=== PATIENT | female | born 1985 | race Caucasian/White ===

== ENCOUNTER 2017-04-26 19:30 | Emergency (ER) | payer OTHER ==
[~2017-04-26] VITALS: Ht 167.6 cm; Wt 106.6 kg
--- NOTE | 2017-04-26 20:25 | ED Integumentary General ---
General Chief Complaint: Trauma-Non Activation Stated Complaint: R HAND BURN FROM STEAM Nursing Triage Note: c/o burn to R 2nd and 3rd finger, patient reports was boiling water. Source: patient Exam Limitations: no limitations History of Present Illness Time seen by provider: 20:06 Initial Comments This 31-year-old young lady presents to the emergency room with connors on the right second and third fingers after contacting steam from a boiling pot while cooking. She has swelling and erythema to the dorsum of these fingers. She retains sensation, capillary refill, and movement of the fingers. She has applied antibiotic ointment but has not taken any medications. She did run them under cold water immediately. She is up-to-date on her tetanus immunization. Allergies and Home Medications Allergies Coded Allergies: No Known Drug Allergies (Unverified , 04/26/17) Home Medications No Active Prescriptions or Reported Meds Constitutional: no symptoms reported Musculoskeletal: no symptoms reported Skin: see HPI Psychiatric/Neurological: No Symptoms Reported Past Cxdftej-Stqmnm-Pvblyf Hx Patient Social History Alcohol Use: Denies Use Recreational Drug Use: No Recent Foreign Travel: No Contact w/Someone Who Travel: No Recent Infectious Disease Expo: No Physical Abuse: No Sexual Abuse: No Surgeries History of Surgeries: Yes Surgeries: Adenoidectomy, Tonsillectomy Respiratory History of Respiratory Disorde: No Cardiovascular History of Cardiac Disorders: No Neurological History of Neurological Disord: No Genitourinary History of Genitourinary Disor: No Gastrointestinal History of Gastrointestinal Di: No Musculoskeletal History of Musculoskeletal Dis: No Endocrine History of Endocrine Disorders: No HEENT History of HEENT Disorders: No Cancer History of Cancer: No Psychosocial History of Psychiatric Problem: No Suicide Risk Score: 0 Integumentary History of Skin or Integumenta: No Blood Transfusions History of Blood Disorders: No Physical Exam Vital Signs Vital Sign - Last 12Hours 04/26/17 19:37 Temp 98.5 Pulse 85 Resp 18 B/P (MAP) 146/98 Pulse Ox 98 Capillary Refill : Less Than 3 Seconds General Appearance: WD/WN, no apparent distress HEENT: PERRL/EOMI Neck: normal inspection Extremities: other (erythema and blistering of the dorsal aspect of the second and third finger on the right hand with generalized swelling of both fingers. Distal capillary refill and sensation intact in the fingertips. 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, no motor/sensory deficits, alert, normal mood/affect, oriented x 3, EOM palsy, depressed affect Skin: warm/dry, other (see above) Progress/Results/Core Measures Results/Orders Vital Signs/I&O Vital Sign - Last 12Hours 04/26/17 04/26/17 19:37 20:30 Temp 98.5 Pulse 85 89 Resp 18 18 B/P (MAP) 146/98 Pulse Ox 98 99 Blood Pressure Mean: 114 Departure Impression Impression: Primary Impression: Second degree burn of finger of right hand Qualified Codes: T23.221A - Burn of second degree of single right finger (nail ) except thumb, initial encounter Disposition: 01 HOME, SELF-CARE Condition: Stable Departure-Patient Inst. Decision time for Depature: 20:10 Referrals: NO,LOCAL PHYSICIAN (PCP/Family) Primary Care Physician Patient Instructions: Skin Connors (DC) Add. Discharge Instructions: You may take ibuprofen up to 800 mg every 8 hours as needed for pain. Add Tylenol (acetaminophen) up to 1000 mg every 6 hours as needed for additional pain relief. Elevation and icing in 20 minute intervals may be helpful in reducing pain and swelling. Antibiotic ointment is optional. Monitor the wound for signs of increasing swelling, increasing redness, fever, or puslike drainage as these may be signs of infection. Return to care if you notice these signs or symptoms. Exercise range of motion of the fingers to prevent stiffness or contractures of the skin. Follow-up with your primary care provider later this week for reexamination. All discharge instructions reviewed with patient and/or family. Voiced understanding. Scripts No Active Prescriptions or Reported Meds BRANDON HERNANDEZ MD Apr 26, 2017 20:25
[2017-04-26 20:30] VITALS: BP 134/95
== END 2017-04-26 20:31 | disposition home or self-care (01) ==
LOC: ER 19:33
DX: T23.231A Burn of second degree of multiple right fingers (nail), not including thumb, initial encounter (principal); T31.0 Burns involving less than 10% of body surface; Z90.89 Acquired absence of other organs; X13.1XXA Other contact with steam and other hot vapors, initial encounter; Y93.G3 Activity, cooking and baking
CPT/HCPCS: 99282

== ENCOUNTER 2019-10-15 15:36 | Emergency (ER) | payer BC, OTHER ==
[~2019-10-15] VITALS: Ht 168 cm; Wt 104.3 kg
[2019-10-15 15:57] VITALS: BP 136/89
--- NOTE | 2019-10-15 16:20 | ED Cough/URI ---
General Chief Complaint: Cough/Cold/Flu Symptoms Stated Complaint: FLU LIKE SYMPTOMS Nursing Triage Note: PT AMBULATE TO TRIAGE WITH C/O SORE THROAT, HEADACHE. PT DENIES FEVER. Sepsis Screen: No Definite Risk Source: patient History of Present Illness Date Seen by Provider: Oct 15, 2019 Time Seen by Provider: 16:18 Initial Comments 34-year-old female presents with cough, sore throat, headache, body aches. Sore throat started about a week ago with symptoms getting a little worse 2-3 days ago. Patient's child was diagnosed with influenza A. Patient's had sym ptoms similar started last night. She does not have any nausea vomiting diarrhea. She denies any chest pain shortness of breath Allergies and Home Medications Allergies Coded Allergies: No Known Drug Allergies (Unverified , 04/26/17) Home Medications No Active Prescriptions or Reported Meds Patient Home Medication List Home Medication List Reviewed: Yes Review of Systems Review of Systems Constitutional: chills EENTM: throat pain Respiratory: cough Cardiovascular: No chest pain Gastrointestinal: No nausea, No vomiting Musculoskeletal: see HPI Skin: no symptoms reported Psychiatric/Neurological: No Symptoms Reported Hematologic/Lymphatic: No Symptoms Reported Past Phucegm-Rqphch-Cpyvnk Hx Past Med/Social Hx: Reviewed Nursing Past Med/Soc Hx Patient Social History Alcohol Use: Denies Use Recreational Drug Use: No Smoking Status: Never a Smoker 2nd Hand Smoke Exposure: No Recent Foreign Travel: No Contact w/Someone Who Travel: No Recent Infectious Disease Expo: No Recent Hopitalizations: No Physical Abuse: No Sexual Abuse: No Mistreated: No Fear: No Seasonal Allergies Seasonal Allergies: No Past Medical History Surgeries: Yes Adenoidectomy, Tonsillectomy Respiratory: No Cardiac: No Neurological: No Genitourinary: No Gastrointestinal: No Musculoskeletal: Yes Fractures Endocrine: No HEENT: No Cancer: No Psychosocial: No Integumentary: No Blood Disorders: No Physical Exam Vital Signs - First Documented 10/15/19 15:57 Temp 36.8 Pulse 87 Resp 17 B/P (MAP) 136/89 (105) O2 Delivery Room Air Capillary Refill : Less Than 3 Seconds Height: 5'6.00" Weight: 235lbs. oz. 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, no motor/sensory deficits, normal mood/affect, oriented x 3 Skin: normal color, warm/dry Progress/Results/Core Measures Suspected Sepsis Recent Fever Within 48 Hours: No Infection Criteria Present: None New/Unexplained Altered Menta: No Sepsis Screen: No Definite Risk SIRS Temperature: Pulse: 87 Respiratory Rate: 17 Blood Pressure 136 /89 Mean: 105 Results/Orders Micro Results Microbiology 10/15/19 Influenza Types A,B Antigen (ROSALIO) - Final, Complete Vital Signs/I&O 10/15/19 10/15/19 15:57 16:01 Temp 36.8 Pulse 87 Resp 17 B/P (MAP) 136/89 (105) O2 Delivery Room Air Room Air Capillary Refill : Less Than 3 Seconds Blood Pressure Mean: 105 Departure Impression Primary Impression: Influenza A Disposition: 01 HOME, SELF-CARE Condition: Stable Departure-Patient Inst. Referrals: NO,LOCAL PHYSICIAN (PCP/Family) Primary Care Physician Patient Instructions: Flu, Adult (DC) Add. Discharge Instructions: Drink plenty of fluids Tylenol or ibuprofen as needed for pain and fever All discharge instructions reviewed with patient and/or family. Voiced understanding. Scripts No Active Prescriptions or Reported Meds Work/School Note: Family Work Note Patient Received Medical Care In the Emergency Department On: Oct 15, 2019 Patient Will Be Able to Return to Work/School On: Oct 18, 2019 DORY SPEARS DO Oct 15, 2019 16:20
[2019-10-16] MEDS ORDERED: VASOPRESSIN INJECTION 20 UNIT/ML VIAL ONE (08:51)
== END 2019-10-15 16:38 | disposition home or self-care (01) ==
LOC: EDUNIT# 15:36 → ER 15:37
DX: J10.1 Influenza due to other identified influenza virus with other respiratory manifestations (principal)
CPT/HCPCS: 87804

== ENCOUNTER 2021-03-31 19:47 | Emergency (ER) | payer BC ==
[~2021-03-31] VITALS: Ht 167.7 cm; Wt 100.7 kg
--- NOTE | 2021-03-31 19:59 | ED Chest Pain ---
General Chief Complaint: Chest Pain Stated Complaint: CHEST PAIN Source: patient Exam Limitations: no limitations History of Present Illness Date Seen by Provider: Mar 31, 2021 Time Seen by Provider: 19:57 Initial Comments To ER with central chest pain sharp in nature that radiates outwards to affect her lateral chest and her jaw. This began at 6 PM. No history of this. She has shortness of breath but states that that is chronic and she attributes that to her obesity. No fevers or chills. No cough. No diaphoresis or nausea. No family history of coronary stenting or heart attacks. She took full dose aspirin at home and states that her pain is currently at a 2 out of 10. Timing/Duration: changing over time Severity/Quality: moderate, sharp Location: central Activities at Onset: none ASA po PROFILER OPERATOR: No NTG SL PROFILER OPERATOR: No Allergies and Home Medications Allergies Coded Allergies: No Known Drug Allergies (Unverified , 04/26/17) Home Medications No Active Prescriptions or Reported Meds Patient Home Medication List Home Medication List Reviewed: Yes Review of Systems Review of Systems Constitutional: see HPI EENTM: No Symptoms Reported Respiratory: See HPI Cardiovascular: See HPI, Chest Pain Gastrointestinal: No Symptoms Reported Genitourinary: No Symptoms Reported Musculoskeletal: no symptoms reported Skin: no symptoms reported Psychiatric/Neurological: No Symptoms Reported Endocrine: No Symptoms Reported Past Ymtmbhk-Gohjns-Bdanwl Hx Patient Social History Tobacco Use?: No Smoking Status: Never a Smoker Substance use?: No Alcohol Use?: No Pt feels they are or have been: No Immunizations Up To Date First/Initial COVID19 Vaccinat: 09/2020 Seasonal Allergies Seasonal Allergies: No Past Medical History Surgeries: Yes Adenoidectomy, Tonsillectomy Respiratory: No Cardiac: No Neurological: No Genitourinary: No Gastrointestinal: No Musculoskeletal: Yes Fractures Endocrine: No HEENT: No Cancer: No Psychosocial: No Integumentary: No Blood Disorders: No Physical Exam Vital Signs Vital Signs - First Documented 03/31/21 19:49 Temp 36.3 Pulse 117 Resp 19 B/P (MAP) 155/94 (114) O2 Delivery Room Air Capillary Refill : Less Than 3 Seconds Height, Weight, BMI Height: 5'6.00" Weight: 235lbs. oz. 106.909719hh; 36.00 BMI Method:Stated General Appearance: No Apparent Distress, WD/WN, Anxious, Other (Blood pressure 154/94. Heart rate 115-120 narrow complex sinus.) Neck: Full Range of Motion, Normal Inspection Respiratory: No Accessory Muscle Use, No Respiratory Distress Cardiovascular: Normal Peripheral Pulses, Tachycardia Gastrointestinal: Normal Bowel Sounds, Non Tender, Soft Extremity: Normal Capillary Refill, Normal Inspection Neurologic/Psychiatric: Alert, Oriented x3 Skin: Normal Color, Warm/Dry Progress/Results/Core Measures Results/Orders Lab Results Laboratory Tests Test 03/31/21 19:59 03/31/21 21:47 Range/Units White Blood Count 10.4 4.3-11.0 10^3/uL Red Blood Count 4.89 3.80-5.11 10^6/uL Hemoglobin 13.4 11.5-16.0 g/dL Hematocrit 41 35-52 % Mean Corpuscular Volume 85 80-99 fL Mean Corpuscular Hemoglobin 27 25-34 pg Mean Corpuscular Hemoglobin Concent 32 32-36 g/dL Red Cell Distribution Width 13.2 10.0-14.5 % Platelet Count 320 130-400 10^3/uL Mean Platelet Volume 9.5 9.0-12.2 fL Immature Granulocyte % (Auto) 0 % Neutrophils (%) (Auto) 59 42-75 % Lymphocytes (%) (Auto) 30 12-44 % Monocytes (%) (Auto) 9 0-12 % Eosinophils (%) (Auto) 1 0-10 % Basophils (%) (Auto) 0 0-10 % Neutrophils # (Auto) 6.2 1.8-7.8 10^3/uL Lymphocytes # (Auto) 3.1 1.0-4.0 10^3/uL Monocytes # (Auto) 0.9 0.0-1.0 10^3/uL Eosinophils # (Auto) 0.1 0.0-0.3 10^3/uL Basophils # (Auto) 0.0 0.0-0.1 10^3/uL Immature Granulocyte # (Auto) 0.0 0.0-0.1 10^3/uL Prothrombin Time 12.0 L 12.2-14.7 SEC INR Comment 0.9 0.8-1.4 Activated Partial Thromboplast Time 28 24-35 SEC D-Dimer < 0.27 0.00-0.49 UG/ML Sodium Level 139 135-145 MMOL/L Potassium Level 3.8 3.6-5.0 MMOL/L Chloride Level 104 98-107 MMOL/L Carbon Dioxide Level 25 21-32 MMOL/L Anion Gap 10 5-14 MMOL/L Blood Urea Nitrogen 8 7-18 MG/DL Creatinine 0.80 0.60-1.30 MG/DL Estimat Glomerular Filtration Rate 81 BUN/Creatinine Ratio 10 Glucose Level 114 H 70-105 MG/DL Calcium Level 9.6 8.5-10.1 MG/DL Corrected Calcium 9.4 8.5-10.1 MG/DL Magnesium Level 2.2 1.6-2.4 MG/DL Total Bilirubin 0.3 0.1-1.0 MG/DL Aspartate Amino Transf (AST/SGOT) 24 5-34 U/L Alanine Aminotransferase (ALT/SGPT) 33 0-55 U/L Alkaline Phosphatase 109 40-136 U/L Myoglobin 27.5 10.0-92.0 NG/ML Troponin I < 0.028 < 0.028 <0.028 NG/ML Total Protein 7.8 6.4-8.2 GM/DL Albumin 4.2 3.2-4.5 GM/DL My Orders Orders - GODWIN BARRAZA TOPOGRAPHICAL DRAFTER Cbc With Automated Diff (03/31/21 19:56) Magnesium (03/31/21 19:56) Chest 1 View, Ap/Pa Only (03/31/21 19:56) Ekg Tracing (03/31/21 19:56) Comprehensive Metabolic Panel (03/31/21 19:56) Myoglobin Serum (03/31/21 19:56) Protime With Inr (03/31/21 19:56) Partial Thromboplastin Time (03/31/21 19:56) O2 (03/31/21 19:56) Monitor-Rhythm Ecg Trace Only (03/31/21 19:56) Lipid Panel (04/01/21 06:00) Ed Iv/Invasive Line Start (03/31/21 19:56) Troponin I (03/31/21 19:56) Metoprolol Tartrate Injection (Lopressor (03/31/21 20:00) Fibrin Degradation Products (03/31/21 19:56) Lidocaine 2% Viscous 15 Ml (Xylocaine Vi (03/31/21 21:00) Antacid Suspension (Mylanta Suspension (03/31/21 21:00) Troponin I (03/31/21 21:46) Medications Given in ED Current Medications Medications Dose Ordered Sig/Leora Route Start Time Stop Time Status Last Admin Dose Admin Al Hydrox/Mg Hydrox/Simethicone 30 ml ONCE ONCE PO 03/31/21 21:00 03/31/21 21:01 DC 03/31/21 21:06 30 ML Lidocaine HCl 10 ml ONCE ONCE PO 03/31/21 21:00 03/31/21 21:01 DC 03/31/21 21:06 10 ML Vital Signs/I&O 03/31/21 03/31/21 19:49 19:49 Temp 36.3 Pulse 117 Resp 19 B/P (MAP) 155/94 (114) O2 Delivery Room Air Room Air Diagnostic Imaging Diagonstic Imaging: Xray Comments Chest x-ray clear Reviewed: Reviewed by Me Departure Communication (Admissions) EKG shows sinus tachycardia rate of [address] segment changes normal intervals no ectopy 2244-GI cocktail helped with her chest pain. Repeat troponin negative. Will discharge to home. Impression Primary Impression: Chest pain Additional Impression: Hiatal hernia Disposition: HOME, SELF-CARE Condition: Stable Departure-Patient Inst. Decision time for Depature: 22:36 Referrals: NO,LOCAL PHYSICIAN (PCP/Family) Primary Care Physician Patient Instructions: Chest Pain That Is Not Caused by the Heart (DC), Hiatal Hernia Scripts No Active Prescriptions or Reported Meds GODWIN BARRAZA APRN Mar 31, 2021 19:59
[2021-03-31] MEDS ORDERED: meTOprolol 5 MG/5 ML (LOPRESSOR) VIAL IV ONE (20:00)
[2021-03-31 20:09] LABS: BASOPHILS % (AUTO) 0 % (0-10); EOSINOPHILS # (AUTO) 0.1 10^3/uL (0.0-0.3); EOSINOPHILS % (AUTO) 1 % (0-10); HEMATOCRIT 41 % (35-52); HEMOGLOBIN 13.4 g/dL (11.5-16.0); LYMPHOCYTES # (AUTO) 3.1 10^3/uL (1.0-4.0); LYMPHOCYTES % (AUTO) 30 % (12-44); MEAN CORPUSCULAR HEMOGLOBIN 27 pg (25-34); MEAN CORPUSCULAR HGB CONC 32 g/dL (32-36); MEAN CORPUSCULAR VOLUME 85 fL (80-99); MEAN PLATELET VOLUME 9.5 fL (9.0-12.2); MONOCYTES # (AUTO) 0.9 10^3/uL (0.0-1.0); MONOCYTES % (AUTO) 9 % (0-12); NEUTROPHILS # (AUTO) 6.2 10^3/uL (1.8-7.8); NEUTROPHILS % (AUTO) 59 % (42-75); PLATELET COUNT 320 10^3/uL (130-400); WHITE BLOOD COUNT 10.4 10^3/uL (4.3-11.0)
--- NOTE | 2021-03-31 20:16 | Diagnostic Imaging Report ---
INDICATION: Chest pain EXAM: Portable chest at 8:12 PM FINDINGS: Heart size and pulmonary vascularity are normal. Lungs are clear. There are no effusions or pneumothoraces. There is a small hiatal hernia. IMPRESSION: Small hiatal hernia. Dictated by: Dictated on workstation # [id number]
[2021-03-31 20:21] LABS: INR 0.9 (0.8-1.4)
[2021-03-31 20:29] LABS: ALBUMIN 4.2 GM/DL (3.2-4.5); BILIRUBIN,TOTAL 0.3 MG/DL (0.1-1.0); CALCIUM 9.6 MG/DL (8.5-10.1); CREATININE SERUM 0.8 MG/DL (0.60-1.30); MAGNESIUM 2.2 MG/DL (1.6-2.4); POTASSIUM 3.8 MMOL/L (3.6-5.0); TOTAL PROTEIN 7.8 GM/DL (6.4-8.2)
[2021-03-31] MEDS ORDERED: ANTACID SUSP 30 ML UDC (MYLANTA) PO ONE (21:00)
[2021-03-31] MEDS ORDERED: LIDOCAINE 2% VISCOUS 15 ML UDC PO ONE (21:00)
[2021-03-31 23:00] VITALS: BP 126/72
== END 2021-03-31 23:00 | disposition home or self-care (01) ==
LOC: EDUNIT# 19:47 → ER 19:49
DX: K44.9 Diaphragmatic hernia without obstruction or gangrene (principal); E66.9 Obesity, unspecified; Z68.36 Body mass index [BMI] 36.0-36.9, adult
CPT/HCPCS: 36415; 71045; 80053; 83735; 83874; 84484; 85025; 85379; 85610; 85730; 93005; 93041

== ENCOUNTER 2022-02-12 20:22 | Emergency (ER) | payer BC ==
[~2022-02-12] VITALS: Ht 167 cm; Wt 107.0 kg
--- NOTE | 2022-02-12 20:38 | ED Upper Extremity ---
General Chief Complaint: Upper Extremity Stated Complaint: HAND INJURY Source: patient Exam Limitations: no limitations (JEFFREY RIVERS) History of Present Illness Date Seen by Provider: Feb 12, 2022 Time Seen by Provider: 20:34 Initial Comments Patient is a 36-year-old female who presents ED with a laceration to her left little finger. This occurred about 30 minutes ago. She states she was mowing and noticed that wire was wrapped around her blade. She stopped the mower when underneath remove the wire when her left little finger got cut against the blade. This resulted in about a 1 to 2 cm superficial laceration without any fat or tendon involvement. Normal active range of motion. Patient is wanting a tetanus shot. She reports some pain and discomfort distally to the left little finger rates pain a 3. (JEFFREY RIVERS) Allergies and Home Medications Allergies Coded Allergies: No Known Drug Allergies (Unverified , 04/26/17) Patient Home Medication List Home Medication List Reviewed: Yes (JEFFREY RIVERS) No Active Prescriptions or Reported Meds Review of Systems Constitutional: No chills, No diaphoresis, No malaise, No weakness EENTM: No hearing loss, No ear pain, No blurred vision Respiratory: No cough Cardiovascular: No chest pain Gastrointestinal: No abdominal pain, No diarrhea, No nausea Genitourinary: No decreased output, No discharge Musculoskeletal: No back pain, No joint pain; muscle pain Skin: change in color, other (laceration) (JEFFREY RIVERS) All Other Systems Reviewed Negative Unless Noted: Yes (JEFFREY RIVERS) Past Uqukuep-Hzvjhy-Cuvvtb Hx Seasonal Allergies Seasonal Allergies: No (JEFFREY RIVERS) Past Medical History Surgeries: Yes Adenoidectomy, Tonsillectomy Respiratory: No Cardiac: No Neurological: No Genitourinary: No Gastrointestinal: No Musculoskeletal: Yes Fractures Endocrine: No HEENT: No Cancer: No Psychosocial: No Integumentary: No Blood Disorders: No (JEFFREY RIVERS) Physical Exam Vital Signs Vital Signs - First Documented 02/12/22 20:26 Temp 37.2 Pulse 109 Resp 18 B/P (MAP) 151/100 (117) Pulse Ox 100 O2 Delivery Room Air (JOSÉ,RAHEEM K DO) Vital Signs Capillary Refill : (JEFFREY RIVERS) Height, Weight, BMI Height: 5'6.00" Weight: 235lbs. oz. 106.772327ry; 35.00 BMI Method:Stated General Appearance: WD/WN, no apparent distress HEENT: PERRL/EOMI, normal ENT inspection, TMs normal, pharynx normal Neck: non-tender, full range of motion, supple Cardiovascular: regular rate, rhythm, no edema, no gallop, no JVD Respiratory: chest non-tender, lungs clear, normal breath sounds, no respiratory distress Gastrointestinal: normal bowel sounds, non tender, soft, no organomegaly Back: normal inspection, no CVA tenderness, no vertebral tenderness Hand: normal ROM, Left, laceration (1 cm laceration to the lateral side of the left little finger. Superficial involvement without any adipose or tendon involvement.) Neurologic/Tendon: normal motor functions, normal tendon functions Skin: normal color, warm/dry (JEFFREY RIVERS) Progress/Results/Core Measures Results/Orders Medications Given in ED Current Medications Medications Dose Ordered Sig/Leora Route Start Time Stop Time Status Last Admin Dose Admin Diphtheria/ Tetanus/Acell Pertussis 0.5 ml ONCE ONCE IM 02/12/22 20:45 02/12/22 20:46 DC 02/12/22 20:47 0.5 ML (RAHEEM KUMAR DO) Vital Signs/I&O 02/12/22 02/12/22 20:26 20:54 Temp 37.2 Pulse 109 Resp 18 B/P (MAP) 151/100 (117) 119/90 Pulse Ox 100 O2 Delivery Room Air (RAHEEM KUMAR DO) Departure Communication (PCP) Concerned that the laceration was result from a melyssa blade. Patient was given tetanus shot. No sutures needed. Irrigated with normal saline and Shur-Clens. Applied Neosporin and bandage. Discussed wound care. Skin is approximated. Updated tetanus. Discussed wound care. Normal active range of motion of left little finger without any tendon or muscular involvement. Return precaution were discussed with patient. (JEFFREY RIVERS) Impression Primary Impression: Laceration Disposition: 01 HOME, SELF-CARE Condition: Stable Departure-Patient Inst. Decision time for Depature: 20:37 (JEFFREY RIVERS) Referrals: NO,LOCAL PHYSICIAN (PCP/Family) Primary Care Physician Patient Instructions: Wound Care ED Add. Discharge Instructions: Recommend applying Neosporin once or twice a day keep area covered until healed All discharge instructions reviewed with patient and/or family. Voiced understanding. Scripts No Active Prescriptions or Reported Meds ATTENDING PHYSICIAN NOTE: I WAS PHYSICALLY PRESENT ER PHYSICIAN, BUT I WAS NOT INVOLVED IN ANY DECISION MAKING OR ANY CARE OF THIS PATIENT. (RAHEEM KUMAR DO) JEFFREY RIVERS Feb 12, 2022 20:38 RAHEEM KUMAR DO Feb 12, 2022 23:51
[2022-02-12] MEDS ORDERED: TETANUS,DIPTH,PERTUSS P/F (BOOSTRIX) 0.5 ML VIAL IM ONE (20:45)
[2022-02-12 20:54] VITALS: BP 119/90
== END 2022-02-12 20:54 | disposition home or self-care (01) ==
LOC: EDUNIT# 20:22 → ER 20:23
DX: S61.217A Laceration without foreign body of left little finger without damage to nail, initial encounter (principal); Z23 Encounter for immunization; W28.XXXA Contact with powered lawn mower, initial encounter; Y93.H2 Activity, gardening and landscaping
CPT/HCPCS: 90471; 90715; 99284

== ENCOUNTER 2023-05-30 | Emergency (ER) | payer BC ==
[~2023-05-30] VITALS: Ht 167.7 cm; Wt 106.6 kg
[2023-05-30] MEDS ORDERED: LIDOCAINE 2% VISCOUS 15 ML UDC PO ONE (00:45)
[2023-05-30] MEDS ORDERED: ANTACID SUSPENSION 30 ML UDC PO ONE (00:45)
[2023-05-30] MEDS ORDERED: PANTOPRAZOLE INJECTION 40 MG VIAL IV ONE (00:45)
[2023-05-30] MEDS ORDERED: SUCRALFATE 1 GM TABLET PO ONE (00:45)
[2023-05-30] MEDS ORDERED: ONDANSETRON INJECTION 4 MG/2 ML (SDV) IVP ONE (00:45)
--- NOTE | 2023-05-30 00:49 | ED General ---
General Chief Complaint: Respiratory Problems Stated Complaint: SOA Nursing Triage Note: PT A&OX3; PT AMBULATES TO ROOM WITHOUT ASSISTANCE OF ER STAFF; PT ADVISES THAT SHE HAS A KNOWN HISTORY OF GERD; PT REPORTS THAT SHE USUALLY IS ABLE TO CONTROL SYMPTOMS BUT TONIGHT SHE REPORTS EATING LATE AND LAYING FLAT IN BED; PT REPORTS BEING AWOKEN WITH FEELING OF REFLUX AND NEED TO VOMIT; PT THE SAT UP AND REPORTS THAT SHE WAS INITIALLY UNABLE TO BREATH; PT REPORTS THAT SINCE EPISODE SHE HAS HAD PERSISTENT COUGH; PT IS CONCERNED THAT SHE MAY HAVE ASPIRATED Source of Information: Patient Exam Limitations: No Limitations (NAZIA BRUCE) History of Present Illness Date Seen by Provider: May 30, 2023 Time Seen by Provider: 00:25 Initial Comments This is a 37yo female with pmh of hiatal hernia and acid reflux that presents with trouble breathing/cough. Pt ate food before going to bed tonight at 10pm and had acid reflux symptoms that she couldn't get rid of. She changed positions in bed to try and help with the discomfort. Around 1130pm, pt got out of bed because she felt like she couldn't breath and wanted to try antacids, but "vomited violently all over". After vomiting, pt felt like she had something in throat and continued to cough. Pt states that she has been prescribed an antacid medication, but only takes it when she feels like she needs it. She has modified diet to help with acid reflux symptoms, but says that sometimes she will eat something that she's "not supposed to have". She has had this happen to her before, but states this time it did not resolve. Pt did note that she had middle chest pain. (NAZIA BRUCE) Timing/Duration: 1-3 Hours Severity: Severe Associated Systoms: Cough, Nausea/Vomiting, Shortness of Air (POORNIMA PEÑALOZA MD) Allergies and Home Medications Allergies Coded Allergies: No Known Drug Allergies (Unverified , 04/26/17) Patient Home Medication List Home Medication List Reviewed: Yes (POORNIMA PEÑALOZA MD) Amoxicillin/Potassium Clav (Amox Tr-K Clv 875-125 mg Tab) 875 Mg-125 Mg Tablet, 1 EACH PO BID Prescribed by: POORNIMA PEÑALOZA on 05/30/23 0200 Review of Systems Review of Systems Constitutional: No fever, No malaise EENTM: throat pain; No nose congestion Respiratory: cough; No hemoptysis Cardiovascular: No chest pain, No edema Gastrointestinal: No abdominal pain, No constipation, No diarrhea, No hem atemesis; heartburn; No melena; nausea, vomiting Genitourinary: No dysuria Musculoskeletal: no symptoms reported Skin: no symptoms reported Psychiatric/Neurological: No Symptoms Reported (NAZIA BRUCE) Past Nufyxpj-Pjdqny-Iawmxh Hx Patient Social History Tobacco Use?: No Use of E-Cig and/or Vaping dev: No Substance use?: No Alcohol Use?: No Pt feels they are or have been: No (NAZIA BRUCE) Immunizations Up To Date Influenza Vaccine Up-to-Date: No; Not Current First/Initial COVID19 Vaccinat: 2020 Second COVID19 Vaccination Du: 2020 (NAZIA BRUCE) Seasonal Allergies Seasonal Allergies: No (NAZIA BRUCE) Past Medical History Surgery/Hospitalization HX: GERD Surgeries: Yes Adenoidectomy, Tonsillectomy Respiratory: No Cardiac: No Neurological: No Last Menstrual Period: May 13, 2023 Genitourinary: No Gastrointestinal: No Musculoskeletal: Yes Fractures Endocrine: No HEENT: No Cancer: No Psychosocial: No Integumentary: No Blood Disorders: No (NAZIA BRUCE) Physical Exam Vital Signs Vital Signs - First Documented 05/30/23 05/30/23 00:10 02:34 Temp 36.9 Pulse 116 Resp 16 B/P (MAP) 142/105 (117) Pulse Ox 99 O2 Delivery Room Air (POORNIMA PEÑALOZA MD) Vital Signs Capillary Refill : Less Than 3 Seconds (NAZIA BRUCE) Height, Weight, BMI Height: 5'6.00" Weight: 235lbs. oz. 106.354369kn; 37.00 BMI Method:Stated General Appearance: WD/WN, Mild Distress HEENT: PERRL/EOMI, Moist Mucous Membranes Neck: Other (Neck is extremely hypertonic bilaterally. No enlarged/tender lymph nodes palpated) Respiratory: Lungs Clear, Normal Breath Sounds, No Accessory Muscle Use, No Respiratory Distress, Other (Mild tenderness in midline of chest) Cardiovascular: Regular Rate, Rhythm, No Edema, No Murmur, Normal Peripheral Pulses (radialis pulses 2+ b/l) Gastrointestinal: Normal Bowel Sounds, No Organomegaly, No Pulsatile Mass, Non Tender, Soft Neurologic/Psychiatric: Alert, Oriented x3, No Motor/Sensory Deficits, Normal Mood/Affect, contact representative II-XII Norm as Tested (NAZIA BRUCE) Progress/Results/Core Measures Suspected Sepsis SIRS Temperature: Pulse: 116 Respiratory Rate: 16 Blood Pressure 142 /105 Mean: 117 (NAZIA BRUCE) Results/Orders My Orders Orders - POORNIMA PEÑALOZA MD Ed Iv/Invasive Line Start (05/30/23 00:35) Chest 1 View, Ap/Pa Only (05/30/23 00:35) Ondansetron Injection (Ondansetron Inj (05/30/23 00:45) Antacid Suspension (Antacid Suspension (05/30/23 00:45) Lidocaine 2% Viscous 15 Ml (Xylocaine Vi (05/30/23 00:45) Sucralfate Tablet (Sucralfate Tablet) (05/30/23 00:45) Pantoprazole Injection (Pantoprazole Inj (05/30/23 00:45) Ceftriaxone Iv/Im (Ceftriaxone Iv/Im) (05/30/23 02:00) (POORNIMA PEÑALOZA MD) Medications Given in ED (POORNIMA PEÑALOZA MD) Vital Signs/I&O 05/30/23 05/30/23 00:10 02:34 Temp 36.9 36.9 Pulse 116 101 Resp 16 16 B/P (MAP) 142/105 (117) 129/88 Pulse Ox 99 O2 Delivery Room Air Room Air (POORNIMA PEÑALOZA MD) Vital Signs/I&O Capillary Refill : Less Than 3 Seconds (NAZIA BRUCE) Blood Pressure Mean: 117 Progress Note : Time: 01:55 Progress Note Patient seen and evaluated by me. I have reviewed and agree with the medical student's documentation. Eval today includes physical exam by me, single view CXR. Pertinent physical exam findings include WDWN female in mild distress due to cough. VSS - not hypoxic. SHe has clear lungs throughout but demonstrates very coarse and persistent cough. Abd exam is benign. No other concerning physical exam findings. DDx includes aspiration, GERD Patient is treated in the ED with 40mg Protonix IV, SHe is given zofran, Maalox 30ml, 5ml viscous lidocaine and 1gm carafate PO. SHe had almost complete resolution of her cough. SH efelt much better after meds. CXR independently reviewed and interpreted by me - I felt she had some patchy airspace disease at the right mainstem and felt it would be prudent to go and treat for possible aspiration based on the historical findings and her cough. Augmentin prescription provided. I did give her 1gm rocephin prior to dismissal. REturn precautions provided in both verbal and written format. All questions sought and answered - she felt better at discharge. (POORNIMA PEÑALOZA MD) Diagnostic Imaging Diagonstic Imaging: Xray Plain Films/CT/US/NM/MRI: chest Comments CXR independently reviewed and interpreted by me - patient has what appears to be patchy airspace disease at right mainstem bronchus - concerning for aspiration (POORNIMA PEÑALOZA MD) Departure Impression Primary Impression: Aspiration pneumonia Qualified Codes: J69.0 - Pneumonitis due to inhalation of food and vomit Disposition: HOME, SELF-CARE Condition: Stable Departure-Patient Inst. Decision time for Depature: 01:56 (POORNIMA PEÑALOZA MD) Referrals: NO,LOCAL PHYSICIAN (PCP/Family) Primary Care Physician Patient Instructions: Aspiration pneumonia Add. Discharge Instructions: Start the antibiotics tomorrow evening. Finish the entire course of 10 days. Over the counter Robitussin DM for cough - follow packaging instructions. If after 2 days of antibiotics you are running fever or having worsening shortness of breath, return to the Emergency Department for re-evaluation. You need to be on your acid reducers every day. Follow up with your primary care physician in a week. Scripts Amoxicillin/Potassium Clav (Amox Tr-K Clv 875-125 mg Tab) 875 Mg-125 Mg Tablet 1 EACH PO BID for 10 Days, #20 TAB Prov: POORNIMA PEÑALOZA MD 05/30/23 Verification and Attestation of Medical Student E/M Service A medical student performed and documented this service in my presence. I revie wed and verified all information documented by the medical student and made modifications to such information, when appropriate. I personally performed the physical exam and medical decision making. Poornima Peñaloza, May 31, 2023,02:38 (POORNIMA PEÑALOZA MD) NAZIA BRUCE May 30, 2023 00:49 POORNIMA PEÑALOZA MD May 30, 2023 02:00
[2023-05-30] MEDS ORDERED: AMOX1TAB12 PO (02:00)
[2023-05-30] MEDS ORDERED: cefTRIAXone IV/IM 1,000 MG in NS (IVPB) 50 ML 50 ML IV ONE (02:00)
[2023-05-30 02:34] VITALS: BP 129/88
--- NOTE | 2023-05-30 05:39 | Diagnostic Imaging Report ---
Indication: Shortness of breath Portable chest 1:26 AM Heart size and pulmonary vascularity are normal. Lungs are clear. There are no effusions or pneumothoraces. IMPRESSION: No acute abnormalities in the chest Dictated by: Dictated on workstation # [id number]
== END 2023-05-30 02:34 | disposition home or self-care (01) ==
LOC: EDUNIT# → ER 00:02
DX: J69.0 Pneumonitis due to inhalation of food and vomit (principal); K21.9 Gastro-esophageal reflux disease without esophagitis; Z79.899 Other long term (current) drug therapy
CPT/HCPCS: 71045